=== PATIENT | female | born 1985 | race Two or more races ===

== ENCOUNTER 2020-09-06 12:16 | Emergency (ER) | payer MEDICAID, OTHER ==
[~2020-09-06] VITALS: Ht 170.2 cm; Wt 60.0 kg
[2020-09-06 12:18] VITALS: BP 113/85
--- NOTE | 2020-09-06 12:21 | NUR ---
BIB [facility] deputies- Deputies report pt ingested unknown substance-was scaned today and shows radiopaque object in abdomen. Pt denies having swallowed anything, c/o RLQ abd pain "since I got there" (08/27/20). Pt reports diarrhea intermittently, denies N/V. Pt remains in custody, deputies remain at bedside.
--- NOTE | 2020-09-06 12:32 | NUR ---
Pt to xray via [place] accompanied by deputies.
[2020-09-06 13:13] LABS: BASOPHILS % (AUTO) 1 % (0-1); EOSINOPHILS % (AUTO) 0 % (1-7); LYMPHOCYTES % (AUTO) 22 % (22-44); MD NO; MEAN CORPUSCULAR HEMOGLOBIN 25.5 pg (27.0-34.8); MEAN CORPUSCULAR HGB CONC 33.6 g/dL (32.4-35.8); MEAN PLATELET VOLUME 7.7 fL (7.4-10.4); MONOCYTES % (AUTO) 7 % (2-9); NEUTROPHILS % (AUTO) 70 % (42-75); PLATELET COUNT 522 x10^3/uL (130-400); RED BLOOD COUNT 6.25 x10^6/uL (3.82-5.3); RED CELL DISTRIBUTION WIDTH 17.1 % (9.6-15.2)
[2020-09-06 13:20] LABS: ALANINE AMINOTRANSFERASE 26 U/L (12-78); ALBUMIN 3.9 g/dL (3.4-5.0); ANION GAP 12 mmol/L (5-15); CALCIUM 9.7 mg/dL (8.5-10.1); CHLORIDE 110 mmol/L (98-107); CREATININE 1.26 mg/dL (0.55-1.02)
[2020-09-06 13:23] LABS: ALKALINE PHOSPHATASE 99 U/L (45-117); BILIRUBIN,TOTAL 0.8 mg/dL (0.2-1.0); TOTAL PROTEIN 9.6 g/dL (6.4-8.2)
== END 2020-09-06 14:04 | disposition home or self-care (01) ==
LOC: ED 13:08
DX: R10.9 Unspecified abdominal pain (principal)
CPT/HCPCS: 36415; 74021; 80053; 83605; 85025; 99284